=== PATIENT | female | born 1995 | race Caucasian/White ===

== ENCOUNTER 2017-02-06 10:36 | Inpatient (IN) | payer MEDICAID ==
[~2017-02-06] VITALS: Ht 162.6 cm; Wt 97.1 kg
[2017-02-06] MEDS ORDERED: DEXT 5%/LR + PITOCIN 20UNITS/L 1,000 ML IV SCH (10:55)
[2017-02-06] MEDS ORDERED: PNV1TABL76 PO (10:55)
[2017-02-06] MEDS ORDERED: MISOPROSTOL 100MCG TABLET VG PRN (11:00)
[2017-02-06] MEDS ORDERED: METHYLERGONOVINE MALEATE 0.2 MG/ML IM PRN (11:00)
[2017-02-06] MEDS ORDERED: CEFAZOLIN SODIUM 1000MG/VIAL ONE (11:08)
[2017-02-06] MEDS ORDERED: SODIUM CHLORIDE 0.9% 10ML VIAL ONE ×2 (11:08→12:20)
[2017-02-06] MEDS ORDERED: OXYTOCIN 10 UNITS/ML 1ML ONE ×2 (11:08→13:19)
[2017-02-06] MEDS ORDERED: EPHEDRINE SULFATE 50MG/ML VIAL ONE (11:08)
[2017-02-06] MEDS ORDERED: ONDANSETRON HCL 4MG/2ML VIAL ONE (11:09)
[2017-02-06] MEDS ORDERED: FENTANYL CITRATE/PF 50MCG/ML 2ML VIAL ONE (11:12)
[2017-02-06] MEDS ORDERED: MORPHINE SULFATE/PF 1MG/ML 10ML AMP ONE (11:12)
[2017-02-06] MEDS: LACTATED RINGERS 1,000 ML IV SCH ×2 (11:23→11:26)
[2017-02-06 11:26] LABS: CLARITY URINE CLEAR (CLEAR); COLOR URINE YELLOW (YELLOW); GLUCOSE URINE NEGATIVE (NEGATIVE); KETONES URINE NEGATIVE (NEGATIVE); LEUKOCYTE ESTERASE URINE TRACE (NEGATIVE); NITRITE URINE NEGATIVE (NEGATIVE); OCCULT BLOOD URINE 2+ (NEGATIVE); PROTEIN URINE NEGATIVE (NEGATIVE); SPECIFIC GRAVITY URINE 1.013 (1.005-1.030); UROBILINOGEN URINE 0.2 E.U./dL (0.2-1.0)
[2017-02-06 11:42] LABS: BASOPHILS % 0.6 % (0.0-2.0); EOSINOPHILS % 0.4 % (0.0-5.0); HEMATOCRIT. 38.5 % (36.0-48.0); HEMOGLOBIN. 12.8 g/dL (12.0-16.0); LYMPHOCYTES % 21.8 % (20.0-50.0); MEAN CORPUSCULAR VOLUME 78.4 fL (81.0-99.0); MEAN PLATELET VOLUME 10.9 fl (7.4-10.4); MONOCYTES % 5.1 % (2.0-8.0); NEUTROPHILS % 72.1 % (40.0-76.0); PLATELET 176 x1000/uL (130-400); RED BLOOD CELL COUNT 4.91 mill/uL (4.2-5.4); RED CELL DISTRIBUTION WIDTH 14.5 % (11.6-14.6)
[2017-02-06 11:51] LABS: INR 0.9; PARTIAL THROMBOPLASTIN TIME 28.2 sec (23.4-31.0); PROTHROMBIN TIME 9.9 sec (9.4-11.6)
[2017-02-06 12:11] LABS: *AMPHETAMINES SCREEN URINE NEGATIVE (NEGATIVE); *BARBITURATES SCREEN URINE NEGATIVE (NEGATIVE); *BENZODIAZEPINES SCREEN URINE NEGATIVE (NEGATIVE); *COCAINE SCREEN URINE NEGATIVE (NEGATIVE); CANNABINOID URINE SCREEN NEGATIVE (NEGATIVE); METHADONE URINE SCREEN NEGATIVE (NEGATIVE); OPIATES URINE SCREEN NEGATIVE (NEGATIVE); PHENCYCLIDINE URINE SCREEN NEGATIVE (NEGATIVE)
[2017-02-06 12:27] LABS: RUBELLA IGG 90.5 IU/mL (4.99-10)
[2017-02-06 12:28] LABS: HEPATITIS B SURFACE ANTIGEN NEGATIVE
[2017-02-06] MEDS ORDERED: HYDROCODONE/ACETAMINOPHEN 5/325MG TABLET PO PRN ×2 (13:45)
[2017-02-06] MEDS ORDERED: BISACODYL 10MG SUPP PR PRN (13:45)
[2017-02-06] MEDS ORDERED: ONDANSETRON HCL 4MG/2ML VIAL IV PRN ×2 (13:45→14:30)
[2017-02-06] MEDS ORDERED: TETANUS, DIPHTHERIA, PERTUSSIS VAC/PF 0.5ML (>7YR OLD) IM ONE (13:45)
[2017-02-06] MEDS ORDERED: INFLUENZA VIRUS VACCINE 0.5ML SYR IM ONE (13:45)
[2017-02-06] MEDS ORDERED: BUTORPHANOL TARTRATE 2 MG/ML VIAL IV PRN (14:30)
[2017-02-06] MEDS ORDERED: DIPHENHYDRAMINE 50MG/ML VIAL IV PRN (14:30)
[2017-02-06] MEDS ORDERED: KETOROLAC 30MG/ML VIAL IV PRN (14:30)
[2017-02-06] MEDS ORDERED: NALOXONE HCL 0.4 MG/ML 1ML VIAL IV PRN (14:30)
[2017-02-06] MEDS: DEXT 5%/LR + PITOCIN 20UNITS/L 1,000 ML IV SCH ×2 (15:13→17:12)
[2017-02-06 16:20] VITALS: BP 121/72
[2017-02-06 16:52] VITALS: BP 121/72
[2017-02-06 17:25] VITALS: BP 116/65
[2017-02-06 20:00] VITALS: BP 118/73
[2017-02-06] MEDS ORDERED: DIPHENHYDRAMINE 25MG CAPSULE PO PRN (21:00)
[2017-02-06 23:42] VITALS: BP 101/61
[2017-02-07] MEDS: DEXT 5%/LR + PITOCIN 20UNITS/L 1,000 ML IV SCH (01:33)
[2017-02-07 04:00] VITALS: BP 107/55
[2017-02-07 07:10] LABS: BASOPHILS % 0.3 % (0.0-2.0); EOSINOPHILS % 0.1 % (0.0-5.0); HEMATOCRIT. 31.6 % (36.0-48.0); HEMOGLOBIN. 10.6 g/dL (12.0-16.0); LYMPHOCYTES % 12.2 % (20.0-50.0); MEAN CORPUSCULAR HEMOGLOBIN 26.1 pg (28.0-32.0); MEAN CORPUSCULAR VOLUME 77.6 fL (81.0-99.0); MONOCYTES % 6.4 % (2.0-8.0); PLATELET 148 x1000/uL (130-400); RED BLOOD CELL COUNT 4.07 mill/uL (4.2-5.4); RED CELL DISTRIBUTION WIDTH 14.8 % (11.6-14.6)
[2017-02-07 07:55] VITALS: BP 99/56
[2017-02-07] MEDS: PRENATAL VIT/FE FUMARATE/FA TABLET PO SCH (08:19)
[2017-02-07] MEDS: FERROUS SULFATE 325MG TABLET PO SCH ×3 (08:20→17:49)
[2017-02-07] MEDS: SIMETHICONE 80MG TABLET CHEW PO SCH ×4 (08:20→21:46)
[2017-02-07] MEDS: LACTATED RINGERS 1,000 ML IV SCH (09:36)
[2017-02-07 12:15] VITALS: BP 118/66
[2017-02-07 16:32] VITALS: BP 113/62
[2017-02-07 19:30] VITALS: BP 114/56
[2017-02-07] MEDS: DOCUSATE SODIUM 100MG CAPSULE PO SCH (21:46)
[2017-02-07 23:40] VITALS: BP 112/57
[2017-02-08 03:50] VITALS: BP 101/67
[2017-02-08 08:30] VITALS: BP 113/62
[2017-02-08] MEDS: PRENATAL VIT/FE FUMARATE/FA TABLET PO SCH (12:39)
[2017-02-08] MEDS: FERROUS SULFATE 325MG TABLET PO SCH (12:39)
[2017-02-08] MEDS: IBUPROFEN 400MG TABLET PO PRN ×2 (12:39→21:08)
[2017-02-08] MEDS: SIMETHICONE 80MG TABLET CHEW PO SCH ×2 (12:40→21:06)
[2017-02-08 17:16] VITALS: BP 115/71
[2017-02-08 19:15] VITALS: BP 120/71
[2017-02-08] MEDS: DOCUSATE SODIUM 100MG CAPSULE PO SCH (21:06)
[2017-02-09] VITALS: BP 104/60
[2017-02-09 04:00] VITALS: BP 97/59
[2017-02-09 07:42] VITALS: BP 123/75
[2017-02-09] MEDS: SIMETHICONE 80MG TABLET CHEW PO SCH (08:13)
[2017-02-09] MEDS: FERROUS SULFATE 325MG TABLET PO SCH (08:13)
[2017-02-09] MEDS: PRENATAL VIT/FE FUMARATE/FA TABLET PO SCH (08:13)
== END 2017-02-09 10:35 | disposition home or self-care (01) | DRG 540 ==
LOC: L&D 10:36 → OBSVTOIN 10:36 → 7EST PP/OB 16:20
PROVIDERS: ADMIT Specialist; ATTEND Specialist
PROC: 10D00Z1 Extraction of Products of Conception, Low, Open Approach (ICD-10-PCS; principal; 2017-02-06 18:00)
DX: O34.211 Maternal care for low transverse scar from previous cesarean delivery (principal); D62 Acute posthemorrhagic anemia; O69.81X0 Labor and delivery complicated by cord around neck, without compression, not applicable or unspecified; O77.0 Labor and delivery complicated by meconium in amniotic fluid; O99.03 Anemia complicating the puerperium; Z37.0 Single live birth; Z3A.38 38 weeks gestation of pregnancy
CPT/HCPCS: 36415; 80305; 81001; 85025; 85610; 85730; 86592; 86703; 86762; 86850; 86900; 87340; 88307; A4216; G0378; J0171; J0690; J1200; J1885; J2274; J2405; J2590; J3010; J7120; A4315